=== PATIENT | female | born 2000 | race Two or more races ===

== ENCOUNTER 2021-01-03 23:08 | Emergency (ER) | payer BC, SELFPAY ==
--- NOTE | ~2021-01-03 | US_ITS ---
EXAMINATION: ULTRASOUND PELVIS AND TRANSVAGINAL CLINICAL INFORMATION: Right lower quadrant pain x1 day. COMPARISON: None TECHNIQUE: Transabdominal and transvaginal imaging of pelvis is performed. FINDINGS: The uterus is retroverted measuring 8.5 cm in length by 5.1 cm in AP and 5.4 cm in transverse dimension. Endometrial thickness is 1.4 cm. Right ovary measures 4.5 x 2.6 x 3.4 cm and volume 20.8 mL. There is anechoic cyst measuring 2.1 x 1.8 x 2.5 cm, likely small corpus luteal cyst. Left ovary measures 5.5 x 3.1 x 4.9 cm and volume 43.7 mL. There is anechoic cyst measuring 4.4 x 2.2 x 4.0 cm likely a small hemorrhagic cyst. Also visualized is a thick-walled echogenic cyst measuring 2.3 x 1.2 x 2.8 cm likely a small corpus luteal cyst. There is normal arterial and venous Doppler flow seen to both ovaries. There is small amount of free fluid in cul-de-sac. US/US pelvic and transvaginal IMPRESSION: Retroverted uterus is unremarkable. There is a echogenic hemorrhagic cyst and a echogenic thick-walled corpus luteal cyst left ovary. A simple cyst seen in the right ovary. Normal vascular flow seen to both ovaries on Doppler exam. Small amount of free fluid in the cul-de-sac.
--- NOTE | ~2021-01-03 | CT_ITS ---
EXAMINATION: CT ABDOMEN AND PELVIS WITH CONTRAST CLINICAL INFORMATION: Right lower quadrant pain COMPARISON: None TECHNIQUE: Multidetector volumetric images were obtained from the superior aspect of the liver through the pubic symphysis following administration 85 mL of Omnipaque 350 intravenous contrast. Sagittal and coronal reformatted images were obtained on the technologist's workstation. Oral contrast: No This CT examination was performed using dose optimization techniques as appropriate, variously including the following: *Automated exposure control *Adjustment of mA and/or kV according to patient size (this includes techniques or standardized protocols for targeted exams where dose is matched to indication/reason for exam; i.e. extremities or head) *Use of iterative reconstruction technique DLP: 326 mGy-cm FINDINGS: LUNG BASES: The visualized lung bases are unremarkable. LIVER, GALLBLADDER, AND BILIARY TREE: The liver is normal in size, shape, and attenuation. No focal hepatic lesion or biliary ductal dilatation is present. The gallbladder is unremarkable with no evidence of radiopaque gallstones, gallbladder wall thickening, or obvious pericholecystic inflammatory changes. PANCREAS: Unremarkable. SPLEEN: Unremarkable. ADRENAL GLANDS: Unremarkable. KIDNEYS AND URETERS: The kidneys are normal in size, shape, and attenuation. No hydronephrosis, hydroureter, or calculi seen. No perinephric stranding. BLADDER: Unremarkable. GASTROINTESTINAL TRACT: The small and large bowel are unremarkable. The appendix is unremarkable. ABDOMINAL WALL: No significant hernia is appreciated. LYMPH NODES: Normal. VASCULAR: Unremarkable. PELVIC VISCERA: Fall there is a 5.5 x 3.8 x 3.6 cm peripherally enhancing fluid containing structure within the left pelvis inseparable from the left ovary. Right ovary unremarkable. Uterus unremarkable. OSSEOUS STRUCTURES: Unremarkable. CT/CT abdomen pelvis w con IMPRESSION: * Normal appendix. * There is a 5.5 cm peripherally enhancing collection or cystic structure inseparable from the left ovary. While this could represent a hemorrhagic cysts within the left ovary, the possibility of a tubo-ovarian abscess is also considered, although is considered slightly less likely given the relative paucity of associated inflammatory changes within the pelvis, as these findings are typically seen in the setting of pelvic inflammatory disease. Recommend pelvic ultrasound for further evaluation.
[2021-01-04 01:19] VITALS: BP 105/65; PULSE 81; RESP 20; TEMP 36.7; O2SAT 98; BMI 19.1
[2021-01-04 03:56] VITALS: BP 110/63; PULSE 70; RESP 16; TEMP 36.6; O2SAT 100
[2021-01-04 04:34] LABS: MANUAL DIFF FLAG NO
[2021-01-04 04:35] LABS: Basophils Percent Auto 0.2 % (0-2); Eosinophils Absolute Auto 0.1 X10*3/uL (0.0-0.4); Eosinophils Percent Auto 1.1 % (0-4); Hematocrit 31.8 % (37-47); Hemoglobin 9.9 g/dl (12.0-16.0); Imm Gran Abs Auto 0.08 X10*3/uL (0.00-0.03); Imm Gran Pct Auto 0.8 % (0.0-0.4); Lymphocytes Absolute Auto 2.8 X10*3/uL (1.2-4.9); Lymphocytes Percent Auto 26.5 % (20-40); Mean Corpuscular HGB Conc 31.1 g/dl (31.0-35.0); Mean Corpuscular Hemoglobin 27.7 pg (27.0-33.0); Mean Corpuscular Volume 88.8 fL (80-98); Monocytes Absolute Auto 0.8 X10*3/uL (0.1-1.2); Monocytes Percent Auto 7.6 % (2-11); Neutrophils Absolute Auto 6.7 X10*3/uL (2.0-8.3); Neutrophils Percent Auto 63.8 % (45-73); Platelet Count 343 X10*3/uL (160-400); Red Blood Count 3.58 X10*6/uL (4.20-5.50); Red Cell Distribution Width 12.8 % (11.0-16.0); White Blood Count 10.4 X10*3/uL (4.8-10.8)
--- NOTE | 2021-01-04 04:48 | ED_ITS ---
HPI - Abdominal Pain General Chief Complaint: Abdominal Pain Stated Complaint: extreme abd pain Time Seen by Provider: 01/04/21 04:32 Source: patient Mode of arrival: ambulatory Limitations: no limitations History of Present Illness HPI narrative: Patient comes to emergency room complaining of right lower quadrant pain starting yesterday. Patient denies nausea vomiting or diarrhea. Patient states the pain is intermittently strong, but is always present and is dull. Patient ate dinner at 20:00. Patient states she had temperature of 100.1 degrees yesterday, patient took Tylenol prior to arrival Related Data Previous Rx's Medication Instructions Recorded acetaminophen 500 mg PO Q6H PRN #14 tab 01/04/21 ferrous sulfate 134 mg PO DAILY #30 tab 01/04/21 Allergies Allergy/AdvReac Type Severity Reaction Status Date / Time No Known Allergies Allergy Verified 01/04/21 04:47 Review of Systems Review of Systems Constitutional : No Weight loss, No Fever, No Chills, No Night Sweats, No Fatigue, No Malaise ENT/Mouth : No Hearing loss, No Ear Pain, No Nasal Congestion, No Sinus Pain, No Hoarseness, No sore throat, No Rhinorrhea, No Swallowing Difficulty Eyes: No Eye Pain, No Swelling, No Redness, No Foreign Body, No Discharge, No Vision Changes Cardiovascular : No Chest Pain, No SOB, No Dyspnea on Exertion, No Orthopnea, No Edema, No Palpitations Respiratory : No Cough, No Sputum, No Wheezing, No Smoke Exposure, No Dyspnea Gastrointestinal : No Nausea, No Vomiting, No Diarrhea, No Constipation, complaining of right lower quadrant pain, No Hematochezia, No Melena Genitourinary : no irregular bleeding, No Dysuria, No Urinary Frequency, No Hematuria, No Urinary Incontinence, No Urgency, No Flank Pain, No Urinary Flow Changes, No Hesitancy Musculoskeletal : No joint pain, No Myalgias, No Joint Swelling Skin : No Skin Lesions, No rash Neuro : No Weakness, No Numbness, No Paresthesias, No Loss of Consciousness, No Dizziness, No Headache Psych : No Anxiety/Panic, No Depression, No SI/HI/AH/VH, No Social Issues, Heme/Lymph: No Bruising, No Bleeding,No Lymphadenopathy Endocrine : No Polyuria, No Polydipsia, No Temperature Intolerance Physical Exam Vital Signs: Vital Signs: Last Vital Signs Temp 97.9 F 01/04/21 03:56 Pulse 70 01/04/21 03:56 Resp 16 01/04/21 05:19 BP 110/63 01/04/21 03:56 Pulse Ox 100 01/04/21 03:56 Body Mass Index 19.1 Appearance: Alert. Oriented X3. No acute distress. Eyes: Pupils equal, round and reactive to light. ENT: Pharynx normal. Neck: Normal inspection. Neck supple. No lymph nodes noted. No crepitus CVS: Normal heart rate and rhythm. Pulses normal. Normal S1 and S2 Respiratory: No respiratory distress. Breath sounds normal. No Wheezing. No rales Abdomen: Soft , tenderness to palpation in the right lower quadrant, positive pain to palpation in the McBurney's point. No rigidity. No distention. good BS x4 Skin: Skin warm and dry. Normal skin color. Normal skin turgor. Extremities: No lower extremity edema. No lower extremity edema. No Lacerations. No Rash Neuro: Oriented X 3. No motor deficit. No sensory deficit. Moving all extermities. No slurred speech. Course Course Course Narrative: Patient has a cystic structure in the left ovary, it may be a hemorrhagic cyst versus tubo-ovarian abscess. Ultrasound pending for further evaluation. I discuss the known labs and CT scan with the patient, ultrasound is still pending. Patient states that she does not have any vaginal discharge, states that she has no concerns for sexually transmitted disease. GC chlamydia pending. Patient is source of pain is likely secondary to hemorrhagic cyst. As mentioned above ultrasound is pending. I discussed the ultrasound with Dr. Garzon, patient does have a hemorrhagic cyst. At this time, patient does not have any pain. I discussed with the patient that she is anemic. Patient states that she has been told by her primary care physician that she is anemic. Patient does not have a primary care physician. I discussed with the patient that she needs to find a PCP, will need iron studies and follow-up. Patient will also follow-up with Dr. Garzon H&H repeated, actually improved to 11.1. Patient ready for discharge MDM - Abdominal Pain Lab Data Result diagrams: 01/04/21 07:36 01/04/21 04:30 Labs: Lab Results 01/04/21 01/04/21 01/04/21 Range/Units 04:30 04:30 04:30 WBC 10.4 (4.8-10.8) X10*3/uL RBC 3.58 L (4.20-5.50) X10*6/uL Hgb 9.9 L (12.0-16.0) g/dl Hct 31.8 L (37-47) % MCV 88.8 (80-98) fL MCH 27.7 (27.0-33.0) pg MCHC 31.1 (31.0-35.0) g/dl RDW 12.8 (11.0-16.0) % Plt Count 343 (160-400) X10*3/uL MPV 9.0 L (9.4-12.3) fL Immature Gran % (Auto) 0.8 H (0.0-0.4) % Neut % (Auto) 63.8 (45-73) % Lymph % (Auto) 26.5 (20-40) % [place] % (Auto) 7.6 (2-11) % Eos % (Auto) 1.1 (0-4) % Baso % (Auto) 0.2 (0-2) % Lymph # (Auto) 2.8 (1.2-4.9) X10*3/uL [place] # (Auto) 0.8 (0.1-1.2) X10*3/uL Eos # (Auto) 0.1 (0.0-0.4) X10*3/uL Baso # (Auto) 0.0 (0.0-0.2) X10*3/uL Abs Immat Gran (auto) 0.08 H (0.00-0.03) X10*3/uL Absolute Neuts (auto) 6.7 (2.0-8.3) X10*3/uL Absolute Nucleated RBC 0.000 (0.0-0.012) X10*3/uL Nucleated RBC % (auto) 0.0 (0.0-0.2) /100WBC Sodium 141 (135-145) mmol/L Potassium 4.2 (3.3-5.1) mmol/L Chloride 107 (96-108) mmol/L Carbon Dioxide 27 (22-29) mmol/L Anion Gap 11 L (12-20) BUN 12 (9-16) mg/dL Creatinine 0.65 (0.5-1.4) mg/dL Estim Creat Clear Calc 106.1 Estimated GFR > 60 Random Glucose 83 (60-115) mg/dL Calcium 8.9 (8.4-10.2) mg/dL Total Bilirubin 0.3 (0.0-1.0) mg/dL AST 16 (5-31) U/L ALT 6 (0-31) U/L Alkaline Phosphatase 64 (39-117) U/L Total Protein 7.6 (6.5-8.0) g/dL Albumin 3.7 (3.5-5.0) g/dL Lipase 38 (8-78) U/L Beta HCG, Quant < 2 mIU/mL Urine Color Urine Appearance Urine pH (5.0-8.0) Ur Specific [place] (1.005-1.025) Urine Protein (NEG-TRACE) MG/DL Urine Glucose (UA) (NEG) MG/DL Urine Ketones (NEG) MG/DL Urine Blood (NEG) Urine Nitrite (NEG) Ur Leukocyte Esterase (NEG) Urine RBC (0) /HPF Urine WBC (0-4) /HPF Ur Squamous Epith Cells /LPF Amorphous Sediment /LPF Urine Bacteria /LPF Urine Mucus /LPF Urine Test (NEGATIVE) 01/04/21 01/04/21 01/04/21 Range/Units 04:43 04:52 07:36 WBC (4.8-10.8) X10*3/uL RBC (4.20-5.50) X10*6/uL Hgb 11.1 L (12.0-16.0) g/dl Hct 35.3 L (37-47) % MCV (80-98) fL MCH (27.0-33.0) pg MCHC (31.0-35.0) g/dl RDW (11.0-16.0) % Plt Count (160-400) X10*3/uL MPV (9.4-12.3) fL Immature Gran % (Auto) (0.0-0.4) % Neut % (Auto) (45-73) % Lymph % (Auto) (20-40) % [place] % (Auto) (2-11) % Eos % (Auto) (0-4) % Baso % (Auto) (0-2) % Lymph # (Auto) (1.2-4.9) X10*3/uL [place] # (Auto) (0.1-1.2) X10*3/uL Eos # (Auto) (0.0-0.4) X10*3/uL Baso # (Auto) (0.0-0.2) X10*3/uL Abs Immat Gran (auto) (0.00-0.03) X10*3/uL Absolute Neuts (auto) (2.0-8.3) X10*3/uL Absolute Nucleated RBC (0.0-0.012) X10*3/uL Nucleated RBC % (auto) (0.0-0.2) /100WBC Sodium (135-145) mmol/L Potassium (3.3-5.1) mmol/L Chloride (96-108) mmol/L Carbon Dioxide (22-29) mmol/L Anion Gap (12-20) BUN (9-16) mg/dL Creatinine (0.5-1.4) mg/dL Estim Creat Clear Calc Estimated GFR Random Glucose (60-115) mg/dL Calcium (8.4-10.2) mg/dL Total Bilirubin (0.0-1.0) mg/dL AST (5-31) U/L ALT (0-31) U/L Alkaline Phosphatase (39-117) U/L Total Protein (6.5-8.0) g/dL Albumin (3.5-5.0) g/dL Lipase (8-78) U/L Beta HCG, Quant mIU/mL Urine Color YELLOW Urine Appearance CLOUDY Urine pH 8.5 H (5.0-8.0) Ur Specific [place] 1.015 (1.005-1.025) Urine Protein 1+ H (NEG-TRACE) MG/DL Urine Glucose (UA) NEG (NEG) MG/DL Urine Ketones NEG (NEG) MG/DL Urine Blood 3+ H (NEG) Urine Nitrite NEG (NEG) Ur Leukocyte Esterase TRACE H (NEG) Urine RBC 10-14 H (0) /HPF Urine WBC 1-4 (0-4) /HPF Ur Squamous Epith Cells TRACE /LPF Amorphous Sediment 4+ /LPF Urine Bacteria NONE /LPF Urine Mucus TRACE /LPF Urine Test NEGATIVE (NEGATIVE) Imaging Data CT scan - abdomen: Radiologist's impression: [facility] [place], [place] [address]EI Scan ReportSigned Patient: Nima Toney#: [id number]: [id number]:[id number]/Sex: 20 / FADM Date: 01/04/21Loc: HO.EDAttending Dr: Ordering Physician: RAUL RODRIGUEZ MD Date of Service: 01/04/21 Procedure(s): CT abdomen pelvis w con Accession Number(s): [id number] cc: RAUL RODRIGUEZ MD~ EXAMINATION: CT ABDOMEN AND PELVIS WITH CONTRAST CLINICAL INFORMATION: Right lower quadrant pain COMPARISON: None TECHNIQUE: Multidetector volumetric images were obtained from the superior aspect of the liver through the pubic symphysis following administration 85 mL of Omnipaque 350 intravenous contrast. Sagittal and coronal reformatted images were obtained on the technologist's workstation. Oral contrast: No This CT examination was performed using dose optimization techniques as appropriate, variously including the following: *Automated exposure control *Adjustment of mA and/or kV according to patient size (this includes techniques or standardized protocols for targeted exams where dose is matched to indication/reason for exam; i.e. extremities or head) *Use of iterative reconstruction technique DLP: 326 mGy-cm FINDINGS: LUNG BASES: The visualized lung bases are unremarkable. LIVER, GALLBLADDER, AND BILIARY TREE: The liver is normal in size, shape, and attenuation. No focal hepatic lesion or biliary ductal dilatation is present. The gallbladder is unremarkable with no evidence of radiopaque gallstones, gallbladder wall thickening, or obvious pericholecystic inflammatory changes. PANCREAS: Unremarkable. SPLEEN: Unremarkable. ADRENAL GLANDS: Unremarkable. KIDNEYS AND URETERS: The kidneys are normal in size, shape, and attenuation. No hydronephrosis, hydroureter, or calculi seen. No perinephric stranding. BLADDER: Unremarkable. GASTROINTESTINAL TRACT: The small and large bowel are unremarkable. The appendix is unremarkable. ABDOMINAL WALL: No significant hernia is appreciated. LYMPH NODES: Normal. VASCULAR: Unremarkable. PELVIC VISCERA: Fall there is a 5.5 x 3.8 x 3.6 cm peripherally enhancing fluid containing structure within the left pelvis inseparable from the left ovary. Right ovary unremarkable. Uterus unremarkable. OSSEOUS STRUCTURES: Unremarkable. CT/CT abdomen pelvis w con IMPRESSION: * Normal appendix. * There is a 5.5 cm peripherally enhancing collection or cystic structure inseparable from the left ovary. While this could represent a hemorrhagic cysts within the left ovary, the possibility of a tubo-ovarian abscess is also considered, although is considered slightly less likely given the relative paucity of associated inflammatory changes within the pelvis, as these findings are typically seen in the setting of pelvic inflammatory disease. Recommend pelvic ultrasound for further evaluation. Pelvic ultrasound: Radiologist's impression: FINDINGS: The uterus is retroverted measuring 8.5 cm in length by 5.1 cm in AP and 5.4 cm in transverse dimension. Endometrial thickness is 1.4 cm. Right ovary measures 4.5 x 2.6 x 3.4 cm and volume 20.8 mL. There is anechoic cyst measuring 2.1 x 1.8 x 2.5 cm, likely small corpus luteal cyst. Left ovary measures 5.5 x 3.1 x 4.9 cm and volume 43.7 mL. There is anechoic cyst measuring 4.4 x 2.2 x 4.0 cm likely a small hemorrhagic cyst. Also visualized is a thick-walled echogenic cyst measuring 2.3 x 1.2 x 2.8 cm likely a small corpus luteal cyst. There is normal arterial and venous Doppler flow seen to both ovaries. There is small amount of free fluid in cul-de-sac. US/US pelvic and transvaginal IMPRESSION: Retroverted uterus is unremarkable. There is a echogenic hemorrhagic cyst and a echogenic thick-walled corpus luteal cyst left ovary. A simple cyst seen in the right ovary. Normal vascular flow seen to both ovaries on Doppler exam. Small amount of free fluid in the cul-de-sac. Discharge Plan Discharge Clinical Impression: Hemorrhagic cyst of left ovary, Anemia Patient Disposition: Home, Self-Care Instructions: Ovarian Cyst (ED) Additional Instructions: Please follow-up with your primary care physician tomorrow. If you have any worsening or new symptoms, please return to the emergency room or call 911. Your pain medication was sent to the [facility] in [facility]. Prescriptions: New acetaminophen 500 mg tablet 500 mg PO Q6H PRN (Reason: pain) Qty: 14 RF: 0 ferrous sulfate 134 mg (27 mg iron) tablet 134 mg PO DAILY Qty: 30 RF: 0 Referrals: Julio Garzon MD [Physician] - 2 days [facility] Past Medical History Medical History No known health problems Social History Social History Advance Directives: No Advance Directives Information Provided: No Patient : No
[2021-01-04 04:56] LABS: Glucose Urine UA NEG (NEG); Leukocyte Esterase Urine TRACE (NEG); Nitrite Urine NEG (NEG); PH 8.5 (5.0-8.0); Specific Gravity - Urine 1.015 (1.005-1.025); UACC Culture Trigger YES; Urine Blood 3+ (NEG); Urine Ketones NEG (NEG)
[2021-01-04 04:58] LABS: Appearance Urine CLOUDY; Color Urine YELLOW; Urine Protein 1+ MG/DL (NEG-TRACE)
[2021-01-04 04:58] LABS: UPreg QC Valid YES; Urine Pregnancy NEGATIVE (NEGATIVE)
[2021-01-04 05:07] LABS: Amorphous Sediment Urine 4+ /LPF; Mucus Urine TRACE /LPF; Squamous Epithelial Cell Urine TRACE /LPF
[2021-01-04 05:11] LABS: Alanine Aminotransferase 6 U/L (0-31); Albumin Level 3.7 g/dL (3.5-5.0); Alkaline Phosphatase 64 U/L (39-117); Anion Gap 11 (12-20); Aspartate Amino Transferase 16 U/L (5-31); Bilirubin Total 0.3 mg/dL (0.0-1.0); Blood Urea Nitrogen 12 mg/dL (9-16); Calcium 8.9 mg/dL (8.4-10.2); Carbon Dioxide 27 mmol/L (22-29); Chloride 107 mmol/L (96-108); Creatinine Clr Calc Pharmacy 106.1; Estimated Glomerular Filt Rate > 60; Glucose Random 83 mg/dL (60-115); Lipase 38 U/L (8-78); Potassium 4.2 mmol/L (3.3-5.1); Sodium 141 mmol/L (135-145); Total Protein 7.6 g/dL (6.5-8.0)
[2021-01-04] MEDS: ondansetron HCL 4 MG/2 ML VIAL IVPUSH (05:16)
[2021-01-04 05:19] VITALS: RESP 16
[2021-01-04] MEDS: Morphine Sulfate 4 MG/ML CARTRIDGE IVPUSH (05:19)
[2021-01-04 05:22] LABS: HCG Quantitative < 2 mIU/mL
[2021-01-04] MEDS: iohexoL 350 MG/ML 100 ML INFUS..BTL 85 ML IV (05:31)
[2021-01-04 07:52] LABS: Hematocrit 35.3 % (37-47); Hemoglobin 11.1 g/dl (12.0-16.0)
[2021-01-04 08:00] VITALS: BP 95/61; PULSE 75; RESP 18; O2SAT 100
[2021-01-04 09:40] LABS: CT PCR DETECTED (Not Detect.); NG PCR NOT DETECTED (Not Detect.)
== END 2021-01-04 08:15 | disposition home or self-care (01) ==
PROVIDERS: Emergency Provider Emergency Medicine
DX: N83.202 Unspecified ovarian cyst, left side (principal); D64.9 Anemia, unspecified
CPT/HCPCS: 36415; 74177; 76830; 76856; 80053; 81001; 81003; 81025; 83690; 84702; 85014; 85018; 85025; 87086; 87491; 87591; 96374; 96375; 99284; J2270; J2405; Q9967